=== PATIENT | female | born 1940 | race American Indian/Alaskan Native ===

== ENCOUNTER 2019-04-23 06:28 | Emergency (ER) | payer OTHER ==
[2019-04-23] MEDS ORDERED: ZOFRAN IV ONE (06:54)
--- NOTE | 2019-04-23 07:02 | Emergency Department Report ---
HPI - General Chief Complaint: Dyspnea/Respdistress Time Seen by Provider: 04/23/19 06:46 - HPI HPI: Room 23 The patient is 78-year-old female presenting with a chief complaint of nausea. The patient states her symptoms began last night with nausea without vomiting. Patient also complained of urinary frequency and chills. Patient denies pain of any type. Patient denies shortness of breath, chest pain or cough. Patient denies history of fever. The patient has a history of end-stage renal disease and reportedly has not had dialysis in one week secondary to traveling to [place] for a Location: [See above] Duration: [See above] Quality: [See above] Severity: [See above] Timing: [See above] Context: [See above] Modifying factors: [See above] Associated signs and symptoms: [see above] ED Past Medical Hx - Past Medical History Hx Hypertension: Yes Hx Renal Disease: Yes (ESRD) - Surgical History Additional Surgical History: Left upper extremity fistula - Family History Family history: no significant - Social History Smoking Status: Never Smoker Substance Use Type: None ED Review of Systems ROS: Stated complaint: SHORTNESS OF BREATH Other details as noted in HPI Constitutional: chills Eyes: denies: eye pain ENT: denies: throat pain Respiratory: denies: shortness of breath Cardiovascular: denies: chest pain Endocrine: no symptoms reported Gastrointestinal: nausea. denies: abdominal pain Genitourinary: frequency. denies: dysuria Musculoskeletal: denies: back pain Neurological: denies: headache Physical Exam - Physical Exam Vital Signs: Vital Signs 04/23/19 06:39 Temperature 100.0 F H Pulse Rate 98 H Respiratory 24 Rate Blood Pressure 206/109 [Right] O2 Sat by Pulse 86 Oximetry Physical Exam: GENERAL: The patient is well-developed well-nourished female lying on stretcher not appearing to be in acute distress. [] HEENT: Normocephalic. Atraumatic. Extraocular motions are intact. Patient has moist mucous membranes. NECK: Supple. Trachea midline CHEST/LUNGS: Clear to auscultation. There is no respiratory distress noted. HEART/CARDIOVASCULAR: Regular. There is no tachycardia. There is no gallop rub or murmur. ABDOMEN: Abdomen is soft, nontender. Patient has normal bowel sounds. There is no abdominal distention. SKIN: There is no rash. There is no edema. There is no diaphoresis. NEURO: The patient is awake, alert, and oriented. The patient is cooperative. The patient has normal speech MUSCULOSKELETAL: There is no evidence of acute injury. ED Course Vital Signs 04/23/19 06:39 Temperature 100.0 F H Pulse Rate 98 H Respiratory 24 Rate Blood Pressure 206/109 [Right] O2 Sat by Pulse 86 Oximetry - Consultations Consultation #1: 04/23/19 08:33 [facility] paged 04/23/19 09:10 Case discussed with [place] physician. Patient will be transferred to [facility] under Dr Carlos ED Medical Decision Making - Lab Data Result diagrams: 04/23/19 07:00 04/23/19 07:00 Laboratory Tests 04/23/19 04/23/19 04/23/19 07:00 07:00 08:12 WBC 18.9 H RBC 3.67 Hgb 9.7 L Hct 29.3 L MCV 80 MCH 26 L MCHC 33 RDW 20.5 H Plt Count 197 Add Manual Diff Complete Total Counted 100 Seg Neuts % (Manual) 94.0 H Band Neutrophils % 0 Lymphocytes % (Manual) 4.0 L Reactive Lymphs % (Man) 0 Monocytes % (Manual) 2.0 Eosinophils % (Manual) 0 Basophils % (Manual) 0 Metamyelocytes % 0 Myelocytes % 0 Promyelocytes % 0 Blast Cells % 0 Nucleated RBC % Not Reportable Seg Neutrophils # Man 17.8 H Band Neutrophils # 0.0 Lymphocytes # (Manual) 0.8 L Abs React Lymphs (Man) 0.0 Monocytes # (Manual) 0.4 Eosinophils # (Manual) 0.0 Basophils # (Manual) 0.0 Metamyelocytes # 0.0 Myelocytes # 0.0 Promyelocytes # 0.0 Blast Cells # 0.0 WBC Morphology Not Reportable Hypersegmented Neuts Not Reportable Hyposegmented Neuts Not Reportable Hypogranular Neuts Not Reportable Smudge Cells Not Reportable Toxic Granulation Not Reportable Toxic Vacuolation Not Reportable Dohle Bodies Not Reportable Pelger-Huet Anomaly Not Reportable Jude Rods Not Reportable Platelet Estimate Consistent w auto Clumped Platelets Not Reportable Plt Clumps, EDTA Not Reportable Large Platelets Not Reportable Giant Platelets Not Reportable Platelet Satelliting Not Reportable Plt Morphology Comment Not Reportable RBC Morphology Not Reportable Dimorphic RBCs Not Reportable Polychromasia Not Reportable Hypochromasia Not Reportable Poikilocytosis Not Reportable Anisocytosis 1+ Microcytosis Not Reportable Macrocytosis Not Reportable Spherocytes Not Reportable Pappenheimer Bodies Not Reportable Sickle Cells Not Reportable Target Cells Not Reportable Tear Drop Cells Not Reportable Ovalocytes Not Reportable Helmet Cells Not Reportable [place] Bodies Not Reportable [place] Rings Not Reportable Jennifer Cells Not Reportable Bite Cells Not Reportable Crenated Cell Not Reportable Elliptocytes Few Acanthocytes (Spur) Not Reportable Rouleaux Not Reportable Hemoglobin C Crystals Not Reportable Schistocytes Not Reportable Malaria parasites Not Reportable Carlos Bodies Not Reportable Hem Pathologist Commnt No Sodium 141 Potassium 4.4 Chloride 106.8 Carbon Dioxide 15 L Anion Gap 24 BUN 52 H Creatinine 3.2 H Estimated GFR 14 BUN/Creatinine Ratio 16 Glucose 192 H Calcium 8.4 Total Bilirubin 0.50 AST 21 ALT 14 Alkaline Phosphatase 77 Total Protein 6.8 Albumin 3.5 L Albumin/Globulin Ratio 1.1 Lipase 7 L Urine Color Yellow Urine Turbidity Cloudy Urine pH 5.0 Ur Specific [place] 1.012 Urine Protein >500 Urine Glucose (UA) Neg Urine Ketones Neg Urine Blood Mod Urine Nitrite Neg Urine Bilirubin Neg Urine Urobilinogen < 2.0 Ur Leukocyte Esterase Lg Urine WBC (Auto) > 182.0 H Urine RBC (Auto) 30.0 U Epithel Cells (Auto) 2.0 - EKG Data -: EKG Interpreted by Me EKG shows normal: sinus rhythm Rate: normal - EKG Data When compared to previous EKG there are: previous EKG unavailable Interpretation: other (no ischemic changes seen) - Radiology Data Radiology results: report reviewed (chest x-ray), image reviewed (chest x-ray) interpreted by me: Chest x-ray-fluid in the horizontal fissure. No focal infiltrates, no pneumothorax [facility] [address] [place] [address] XRay Report Signed Patient: ASHLEY PAL MR#: [id number] : 1940 Acct:[id number] Age/Sex: 78 / F ADM Date: 04/23/19 Loc: ED Attending Dr: Ordering Physician: ABIDA MORENO MD Date of Service: 04/23/19 Procedure(s): XR chest 1V ap Accession Number(s): [id number] cc: ABIDA MORENO MD Fluoro Time In Minutes: CHEST 1 VIEW INDICATION / CLINICAL INFORMATION: no dialysis x one week, concern for volume overloa. COMPARISON: None available. FINDINGS: SUPPORT DEVICES: None. HEART / MEDIASTINUM: No significant abnormality. LUNGS / PLEURA: There is a triangular shaped density in the left upper lung. No pneumothorax. ADDITIONAL FINDINGS: No significant additional findings. IMPRESSION: [place] shaped density in the left upper lung. Otherwise negative exam Signer Name: Marbin Calix MD FACR Signed: 04/23/2019 8:11 AM Workstation Name: [id number] Transcribed By: MS Dictated By: Marbin Calix MD Electronically Authenticated By: Marbin Calix MD Signed Date/Time: 04/23/19810 DD/ 9 TD/TT: - Differential Diagnosis hyperkalemia, pyelonephritis, UTI, volume overload Critical care attestation.: If time is entered above; I have spent that time in minutes in the direct care of this critically ill patient, excluding procedure time. ED Disposition Clinical Impression: Pyelonephritis, Nausea, Leukocytosis, End stage renal disease Disposition: DC/TX-70 ANOTHER TYPE HLTHCARE Is pt being admited?: No Does the pt Need Aspirin: No Condition: Fair Time of Disposition: 09:10 (awaiting transport)
[2019-04-23] MEDS ORDERED: TYLENOL ONE (07:07)
[2019-04-23] MEDS ORDERED: TYLENOL PO ONE (07:12)
[2019-04-23 07:21] LABS: Hematocrit 29.3 % (30.3-42.9); Hemoglobin 9.7 gm/dl (10.1-14.3); Mean Corpuscular HGB Conc 33 % (30-34); Mean Corpuscular Volume 80 fl (79-97); Platelet Count 197 K/mm3 (140-440); Red Blood Count 3.67 M/mm3 (3.65-5.03); Red Cell Distribution Width 20.5 % (13.2-15.2)
[2019-04-23 07:47] LABS: Albumin 3.5 g/dL (3.9-5); Calcium 8.4 mg/dL (8.4-10.2)
[2019-04-23 08:16] LABS: Basophils % (Manual) 0 % (0.0-1.8); Eosinophils % (Manual) 0 % (0.0-4.3); Total Cells Counted 100
--- NOTE | 2019-04-23 08:16 | XRay Report ---
CHEST 1 VIEW INDICATION / CLINICAL INFORMATION: no dialysis x one week, concern for volume overloa. COMPARISON: None available. FINDINGS: SUPPORT DEVICES: None. HEART / MEDIASTINUM: No significant abnormality. LUNGS / PLEURA: There is a triangular shaped density in the left upper lung. No pneumothorax. ADDITIONAL FINDINGS: No significant additional findings. IMPRESSION: [place] shaped density in the left upper lung. Otherwise negative exam Signer Name: Marbin Calix MD FACR Signed: 04/23/2019 8:11 AM Workstation Name: [id number]
[2019-04-23 08:18] LABS: Anisocytosis 1+; Platelet Estimate Consistent w Auto
[2019-04-23 08:27] LABS: Bilirubin,Urine NEG (Negative); Blood,Urine MOD (Negative); Color,Urine Yellow (Yellow); Urobilinogen,Urine < 2.0 mg/dL (<2.0)
[2019-04-23 08:29] LABS: Protein,Urine >500 mg/dL (Negative); WBC,Urine > 182.0 /HPF (0.0-6.0)
[2019-04-23] MEDS ORDERED: CATAPRES PO ONE (08:34)
[2019-04-23] MEDS ORDERED: LEVAQUIN 250MG/50ML 250 MG/50 ML BAG IV ONE (09:00)
[2019-04-23] MEDS ORDERED: ROCEPHIN/NS 1 GM/50 ML 1 GM/50 ML BAG IV ONE (09:39)
[2019-04-23 11:27] VITALS: BP 152/63
== END 2019-04-23 11:25 | disposition other institution (70) ==
LOC: EDBD → ED 06:28
DX: N12 Tubulo-interstitial nephritis, not specified as acute or chronic (principal); D72.829 Elevated white blood cell count, unspecified; I12.0 Hypertensive chronic kidney disease with stage 5 chronic kidney disease or end stage renal disease; N18.6 End stage renal disease; Z99.2 Dependence on renal dialysis
CPT/HCPCS: 36415; 71045; 80053; 81001; 82140; 83690; 85007; 85025; 87040; 87076; 87086; 87186; 93005; 93010; 96365; 96367; 96375; 99285; J0696; J1956; J2405